=== PATIENT | female | born 1950 | race Caucasian/White ===

== ENCOUNTER 2018-01-22 10:12 | Outpatient (CLI) | payer MEDICARE, MEDICAID ==
--- NOTE | 2018-01-22 11:27 | RAD ---
AP AND LATERAL STANDARD CERVICAL SPINE: HISTORY: M47.12 (cervical spondylosis with myelopathy). COMPARISON: None. FINDINGS: There is moderate degenerative disk space narrowing at C5-C6 and at C6-C7 with anterior and posterior disk osteophyte complexes. No significant listhesis. There is minimal retrolisthesis of C5 on C6 in the extended position. IMPRESSION: 1. Minimal translation of C5/C6, retrograde, with extension. 2. Moderate degenerative changes. POS: [facility]
--- NOTE | 2018-01-22 11:51 | MRI ---
MRI CERVICAL SPINE WITHOUT CONTRAST: INDICATIONS: Spondylosis, including myelopathy and neck pain. COMPARISON: None. TECHNIQUE: Multiplanar, multisequence MR images were obtained of the cervical spine without contrast. Motion ar tifact limits image detail. FINDINGS: There is a 1.1 cm mild complex Tornwaldt cyst seen within the posterior nasopharynx on the sagittal i mages. The visualized posterior fossa appears within normal limits. The craniocervical junction appears within normal limits. C2-C3: There is moderate facet joint interchange and mild broad-based bulge. There is no appreciabl e central canal or neural foraminal narrowing. C3-C4: There is moderate bilateral facet joint degenerative change. There is uncovertebral hypertro phy without appreciable central canal or neural foraminal narrowing. C4-C5: There is uncovertebral hypertrophy and facet joint degenerative change inducing mild bilatera l neural foraminal narrowing. C5-C6: There is a broad-based bulge with facet joint degenerative change and uncovertebral hypertrop hy, greater on the right, inducing mild to moderate right neural foraminal narrowing. Motion artifac t at this level slightly limits detail. C6-C7: There is a broad-based bulge without appreciable central canal or neural foraminal narrowing. C7-T1: There is no appreciable central canal or neural foraminal narrowing. IMPRESSION: 1. Multilevel spondylosis of the cervical spine with neural foraminal narrowing seen at C5-C6. 2. 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 This is a benign cystic abnormality of the nasopharynx. POS: [facility]
== END 2018-01-22 10:13 | disposition home or self-care (01) ==
LOC: TBSIIMAG 10:12
PROVIDERS: ATTEND Neurological Surgery
DX: M47.12 Other spondylosis with myelopathy, cervical region (principal); M99.81 Other biomechanical lesions of cervical region; J39.2 Other diseases of pharynx
CPT/HCPCS: 72040; 72141

== ENCOUNTER 2018-03-03 08:43 | Outpatient (CLI) | payer MEDICARE, MEDICAID | END 2018-03-03 08:44 | disposition home or self-care (01) | LOC: BICMRI 08:43 | PROVIDERS: ATTEND Specialist | DX: M51.16 Intervertebral disc disorders with radiculopathy, lumbar region (principal); M48.061 Spinal stenosis, lumbar region without neurogenic claudication | CPT/HCPCS: 72148 ==

== ENCOUNTER 2018-08-20 08:31 | Outpatient (CLI) | payer MEDICARE, MEDICAID ==
--- NOTE | 2018-08-20 09:52 | CT ---
CT OF THE CHEST WITHOUT CONTRAST: Comparison: 07-02-18 History: Atelectasis versus consolidation in the right middle lobe seen on the prior examination. Pul monary infiltrate. Technique: Multiple contiguous axial images were obtained in a CT of the chest without contrast. Franci nal reformats were performed. FINDINGS: Emphysematous changes are seen in the lungs. There is a stable wedge shaped area of consolidation in the posterior medial aspect of the right middle lobe. This likely represents atelectasis and is uncha nged compared to the prior examination. Stable atelectasis is also seen in the medial aspect of the l ingula. No suspicious pulmonary nodules are seen. No pneumothorax or pleural effusions are seen. The heart is normal in size. No hilar or mediastinal lymphadenopathy are appreciated on this limited noncontrast examination. The patient is status post cholecystectomy. The visualized subdiaphragmatic structures are unremarkab le. The chest wall soft tissues are unremarkable. IMPRESSION: 1. Stable atelectasis and scarring in the right middle lobe and lingula. 2. Emphysema. POS: C
== END 2018-08-20 08:32 | disposition home or self-care (01) ==
LOC: BICCT 08:31
PROVIDERS: ATTEND Internal Medicine
DX: R91.8 Other nonspecific abnormal finding of lung field (principal); J43.9 Emphysema, unspecified; J98.11 Atelectasis; J98.4 Other disorders of lung
CPT/HCPCS: 71250

== ENCOUNTER 2018-08-31 08:36 | Day surgery (SDC) | payer MEDICARE, MEDICAID ==
[2018-08-21 13:06] VITALS: BMI 23.4
[2018-08-31] MEDS ORDERED: Famotidine/PF 20 mg/2ml Vial ONE (12:22)
[2018-08-31] MEDS ORDERED: Fentanyl 100 MCG/2 ML VIAL ONE (12:22)
--- NOTE | 2018-08-31 14:24 | OP ---
DATE OF PROCEDURE: 08/31/2018 SERVICE: Pulmonary Medicine. PROCEDURES PERFORMED: Fiberoptic bronchoscopy with; 1. Visual airway inspection. 2. Endobronchial brush of the right middle lobe. 3. Bronchoalveolar lavage of the right middle lobe. PREPROCEDURE DIAGNOSIS: Atelectasis of the right middle lobe. POSTPROCEDURE DIAGNOSIS: Atelectasis of the right middle lobe. MEDICATIONS USED: For list of medications, please refer to Anesthesia documentation. PREANESTHESIA ASSESSMENT: H and P had been performed. The patient's medications and allergies were reviewed. CONSENT: Informed consent was obtained after discussing risks, benefits, and rationale for performing the procedure as well as alternative options. DESCRIPTION OF PROCEDURE: A time-out was performed identifying the correct procedure and patient with name and date of . A diagnostic fiberoptic bronchoscope was introduced through the 8.0 endotracheal tube. The bronchoscope was advanced into the trachea, where tracheobronchial tree inspection was carried out with clear identification of the right upper lobe, right middle lobe, right lower lobe, left upper lobe, lingula, and left lower lobe. Anatomy was normal to the segmental level. Bronchoalveolar lavage was obtained from the right middle lobe. Endobronchial brushing was obtained from 3 separate segments of the right middle lobe. Hemostasis was verified, and the bronchoscope was subsequently removed from the patient. FINDINGS: 1. Secretions were extremely heavy, tenacious, and clear. 2. No endobronchial disease was identified. 3. Chronic inflammatory changes were diffusely spread throughout the lung, but more severely in the right middle lobe bronchus. 4. Charlette is sharp. SPECIMENS OBTAINED: 1. Pathology on brush and BAL. 2. Microbiology on BAL. COMPLICATIONS: None. ESTIMATED BLOOD LOSS: Less than 2 mL. FLUOROSCOPY TIME: None. DISPOSITION: The patient will be discharged to home when she meets criteria with discharge instructions. She will return to clinic as previously directed. Job ID: [id number]
[2018-08-31 14:30] LABS: Body Fluid Source Bronchial Washings
[2018-08-31 14:31] LABS: BF Color Pink; Clarity Cloudy/Turbid (Clear); RBC Background Count 0.002; Tube # EDTA; WBC/NonHematic-Auto 543 /cumm
[2018-08-31 14:38] LABS: RBC Count-Automated 15000 /cumm
[2018-08-31] MEDS ORDERED: PROPOFOL 200 MG/20 ML VIAL ONE (14:53)
[2018-08-31] MEDS ORDERED: Ondansetron PF 4 MG/2 ML Vial ONE (14:53)
[2018-08-31] MEDS ORDERED: Succinylcholine Chloride 20 MG/ML 10 ml SYRINGE FS ONE (14:53)
[2018-08-31] MEDS ORDERED: Lidocaine 1% PF 5 ML VIAL ONE (14:53)
[2018-08-31] MEDS ORDERED: Rocuronium Bromide 10 MG/ML (10ML VIAL) ONE (14:53)
[2018-08-31] MEDS ORDERED: Metoprolol Tartrate 5 MG/5 ML VIAL ONE (14:53)
== END 2018-08-31 16:09 | disposition home or self-care (01) ==
LOC: SDC 08:36
PROVIDERS: ATTEND Internal Medicine
PROC: 0B9D8ZX Drainage of Right Middle Lung Lobe, Via Natural or Artificial Opening Endoscopic, Diagnostic (ICD-10-PCS; principal; 2018-08-31)
PROC: 0BDD8ZX Extraction of Right Middle Lung Lobe, Via Natural or Artificial Opening Endoscopic, Diagnostic (ICD-10-PCS; 2018-08-31)
DX: J98.11 Atelectasis (principal); J96.12 Chronic respiratory failure with hypercapnia; J96.11 Chronic respiratory failure with hypoxia; J44.9 Chronic obstructive pulmonary disease, unspecified; F17.210 Nicotine dependence, cigarettes, uncomplicated; I10 Essential (primary) hypertension; E78.5 Hyperlipidemia, unspecified; G89.29 Other chronic pain; M54.9 Dorsalgia, unspecified; F32.9 Major depressive disorder, single episode, unspecified; Z79.899 Other long term (current) drug therapy; Z88.1 Allergy status to other antibiotic agents; Z88.2 Allergy status to sulfonamides; Z88.6 Allergy status to analgesic agent; Z88.8 Allergy status to other drugs, medicaments and biological substances
CPT/HCPCS: 85060; 87070; 87102; 87116; 87205; 87206; 88112; 88305; 89051; J2001; J2405; J2704; J3010; S0028

== ENCOUNTER 2018-09-07 08:28 | Outpatient (CLI) | payer MEDICARE, MEDICAID ==
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
== END 2018-09-07 08:29 | disposition home or self-care (01) ==
LOC: MRI 08:28
PROVIDERS: ATTEND Family Medicine
DX: S06.0X9S Concussion with loss of consciousness of unspecified duration, sequela (principal)
CPT/HCPCS: 70551

== ENCOUNTER 2019-02-15 13:53 | Inpatient (IN) | payer MEDICARE, MEDICAID ==
[2019-02-15] MEDS ORDERED: methylPREDNISolone Sod Succ/PF 125 MG/2 ML VIAL ONE (14:52)
[2019-02-15 17:54] VITALS: BMI 19.7
[2019-02-15] MEDS ORDERED: Ondansetron PF 4 MG/2 ML Vial IVP PRN (19:51)
[2019-02-15] MEDS ORDERED: Acetaminophen 650 MG Suppository PR PRN (19:51)
[2019-02-15] MEDS ORDERED: Acetaminophen 325 MG TAB PO PRN (19:51)
[2019-02-15] MEDS ORDERED: Ondansetron ODT 4 MG TAB PO PRN (19:51)
--- NOTE | 2019-02-15 21:14 | HP ---
PRIMARY CARE PHYSICIAN: Dr. Bailon. CODE STATUS: Full code. TIME OF EVALUATION: 8:00 p.m. CHIEF COMPLAINT: Shortness of breath. HISTORY OF PRESENT ILLNESS: This is a 68-year-old female patient with past medical history of COPD, came to the hospital after having severe gradually worsening shortness of breath with no clear triggers and no alleviating factors, associated with cough, has scant sputum production, that was clear. The patient has chronic respiratory failure with hypoxia using oxygen at home. The patient has seen Dr. Bailon earlier today and was suggested to have pneumonia. For the reason, she came to the ER, further she has been admitted to the hospital. REVIEW OF SYSTEMS: All systems reviewed were negative except for the findings mentioned in the HPI. PAST MEDICAL HISTORY: Positive for hyperlipidemia, COPD, hypertension, spondylosis of the lumbar spine, herpes, H. pylori in 2013. PAST SURGICAL HISTORY: Cholecystectomy and colonoscopy with polyp removal in 2009. PSYCHIATRIC HISTORY: Depression. No history of suicidal ideation. SOCIAL HISTORY: The patient smokes cigarettes on a daily basis, half a pack per day. FAMILY HISTORY: Reviewed, noncontributory to current presentation. KNOWN ALLERGIES: Zithromax, naproxen, sulfa, and tramadol. REPORTED MEDICATIONS: 1. Lisinopril. 2. Paxil. 3. Symbicort. 4. Combivent. 5. DuoNeb. 6. Fish oil. 7. [place]. 8. Crestor. PHYSICAL EXAMINATION: VITAL SIGNS: On presentation, blood pressure 132/79 with heart rate 108, respiratory rate was 26, temperature 99.7, pain 3/10, and oxygen saturation was 90% on 2 L oxygen. GENERAL APPEARANCE: The patient is alert and oriented, not in acute distress. HEENT: Eyes, normal conjunctivae. Moist oral mucosa. Anicteric. No JVD. RESPIRATORY: Bilateral air entry is decreased. The patient has bilateral wheezing with no rales. CARDIOVASCULAR: Normal rate, regular rhythm. No murmurs. No gallop. No edema. ABDOMEN: Soft. Normal bowel sounds. MUSCULOSKELETAL: The patient has baseline range of motion and strength. SKIN: Warm and intact. No pallor. No rash. No redness. Capillary refill seems to be intact. NEUROLOGIC: No evidence of any new focal weakness. PSYCHIATRIC: The patient is in good mood. Optimal judgment. IMAGING STUDIES: Chest x-ray was reviewed. The heart size is normal. The aorta is tortuous. The lungs are expanded with suggestion of mild infiltrate in the right lung base. No pneumothoraces or large effusion is seen. LABORATORY DATA: Labs are reviewed. White count 17.9, hemoglobin 14.1, MCV 85.9, platelet count 300. Chemistry; sodium 131, chloride 93, potassium 3.8, anion gap 16. BUN and creatinine were normal. Glucose 123. LFTs were negative. ASSESSMENT AND PLAN: The patient will be placed in the hospital with the following medical problems: 1. Pneumonia, seen on the chest x-ray, specifically on the right lung base. The patient has been started on antibiotics. The patient seems to be septic and is the source. The patient is tachycardic and also have leukocytosis. We will hydrate, we will do cultures and follow sensitivity to adjust antibiotics. 2. Possible chronic obstructive pulmonary disease exacerbation, overlapping underlying pneumonia. The patient has increased shortness of breath, sputum production, cough, pneumonia. The patient will be on nebs, antibiotics, and steroids. 3. Uncontrolled hypertension, systolic blood pressure 145 in admission. We will reconcile home medications, did not treat aggressively since the patient has underlying sepsis and risk for hypertension. 4. Hyperlipidemia. Low-cholesterol diet is advised. Reconcile home medications. 5. Deep venous thrombosis prophylaxis. Job ID: [id number]
[2019-02-16] MEDS: methylPREDNISolone Sod Succ/PF 125 MG/2 ML VIAL IVP SCH ×4 (00:28→20:49)
[2019-02-16 06:33] LABS: #Lymphocytes 0.8 thou/uL (1.20-3.40); #Monocytes 0.4 thou/uL (0.11-0.59); #Neutrophils 8.6 thou/uL (1.40-6.50); %Basophils 0.1 % (0.0-1.0); %Eosinophils 0.3 % (0.0-10.0); %Lymphocytes 8.5 % (21.0-51.0); %Monocytes 3.7 % (0.0-10.0); %Neutrophils 87.5 % (42.0-75.0); Hemoglobin 13.7 g/dL (12.0-16.0); Mean Corpuscular HGB CONC 31.7 g/dL (32.0-36.0); Mean Corpuscular Hemoglobin 28.8 pg (27.0-31.0); Mean Platelet Volume 7.3 fL (7.4-10.4); Platelet Count 284 thou/uL (130-400); RBC Distribution Width 13.9 % (11.5-14.5); Red Blood Cell (RBC) Count 4.74 mill/uL (4.20-5.40); White Blood Cell (WBC) Count 9.9 thou/uL (4.8-10.8)
[2019-02-16 06:56] LABS: Anion Gap 15 mmol/L (10-20); BUN (Urea Nitrogen) 9 mg/dL (9.8-20.1); Calc. Creatinine Clearance 66 mL/min (70-130); Carbon Dioxide 25 mmol/L (23-31); Chloride 103 mmol/L (98-107); Estimated GFR-MDRD Greater than 90; Glucose 169 mg/dL (80-115); Potassium 4.3 mmol/L (3.5-5.1); Sodium 139 mmol/L (136-145)
[2019-02-16] MEDS: Enoxaparin Sodium 40 MG/0.4 ML SYRINGE SC SCH (08:34)
--- NOTE | 2019-02-16 15:34 | PDOC.HOSPP ---
- Subjective Encounter Date: 02/16/19 Encounter Time: 15:30 Subjective: Sitting up receiving breathing treatment. Generally less dyspneic than on admit , cough present, endorses chest wall discomfort with coughing. No nausea or vomiting. - Objective Vital Signs & Weight: Vital Signs (12 hours) Temp Pulse Resp BP Pulse Ox 02/16/19 14:27 94 16 94 L 02/16/19 12:15 99 F 110 H 20 143/84 H 92 L 02/16/19 11:05 98 16 91 L 02/16/19 08:30 91 L 02/16/19 08:28 98.2 F 92 20 130/81 91 L 02/16/19 06:55 88 L 02/16/19 06:53 95 16 88 L Weight Weight 101 lb I&O: 02/15/19 02/16/19 02/17/19 06:59 06:59 06:59 Intake Total 550 Balance 550 Result Diagrams: 02/16/19 05:43 02/16/19 05:43 ROS - Medication Medications: Active Medications Generic Name Dose Route Start Last Admin Trade Name Sundayq PRN Reason Stop Dose Admin Albuterol/Ipratropium 3 ml 02/15/19 22:30 02/16/19 14:27 Duoneb NEB 3 ml [id number] ERENDIRA Administration Enoxaparin Sodium 40 mg 02/16/19 09:00 02/16/19 08:34 Lovenox SC 40 mg 0900 ERENDIRA Administration Levofloxacin 750 mg/ Device 150 mls @ 100 mls/hr 02/16/19 15:00 02/16/19 15: 19 IVPB 150 mls Q24HR ERENDIRA Administration Methylprednisolone Sodium Succinate 40 mg 02/15/19 23:59 02/16/19 12:19 Solu-Medrol IVP 40 mg Q6HR ERENDIRA Administration - Exam General - other findings: Sitting up in bed, receiving breathing treatment Eye: PERRL ENT: moist mucosa Neck: supple, no JVD Heart - other findings: mildly tachycardic Respiratory: rhonchi, wheezes Gastrointestinal: soft, non-tender Extremities: no clubbing, no edema Neurological: no focal deficits Psychiatric: A&O x 3 Hosp A/P (1) CAP (community acquired pneumonia) Code(s): J18.9 - PNEUMONIA, UNSPECIFIED ORGANISM Status: Acute (2) COPD exacerbation Code(s): J44.1 - CHRONIC OBSTRUCTIVE PULMONARY DISEASE W (ACUTE) EXACERBATION Status: Acute (3) Anxiety and depression Code(s): F41.9 - ANXIETY DISORDER, UNSPECIFIED; F32.9 - MAJOR DEPRESSIVE DISORDER, SINGLE EPISODE, UNSPECIFIED Status: Chronic (4) Dyslipidemia Code(s): E78.5 - HYPERLIPIDEMIA, UNSPECIFIED Status: Chronic (5) Hypertension Code(s): I10 - ESSENTIAL (PRIMARY) HYPERTENSION Status: Chronic (6) Tobacco abuse Code(s): Z72.0 - TOBACCO USE Status: Chronic - Plan continue antibiotics, incentive spirometry, out of bed/ambulate, DVT proph w/ lovenox Pulm - antibiotics/steroids/nebs. Add brovana and pulmicort. Reviewed CXR personally, right basilar infiltrate. Reinforce tobacco cessation recommendations. Increase activity as able. Add norco for chest wall pain, tolerates at home. Resume select home meds, see orders.
[2019-02-16] MEDS: Budesonide 0.5 MG/2 ML NEB INH SCH (18:35)
[2019-02-16] MEDS: Arformoterol 15 MCG/2 ML NEB NEB SCH (18:36)
[2019-02-16] MEDS: Gabapentin 300 MG CAP PO SCH (20:49)
[2019-02-16] MEDS: Rosuvastatin 20 MG TAB PO SCH (20:49)
[2019-02-17] MEDS ORDERED: Melatonin 3 MG TAB PO PRN (00:11)
[2019-02-17] MEDS ORDERED: Lisinopril 10 MG TAB PO SCH (00:30)
[2019-02-17] MEDS: methylPREDNISolone Sod Succ/PF 125 MG/2 ML VIAL IVP SCH ×2 (00:30→06:35)
[2019-02-17] MEDS: HYDROcodone/Acetaminophen 5/325 mg Tablet PO PRN ×2 (00:31→21:42)
[2019-02-17] MEDS: Lisinopril 10 MG TAB PO SCH ×2 (00:33→09:51)
[2019-02-17] MEDS: Arformoterol 15 MCG/2 ML NEB NEB SCH ×2 (06:55→19:25)
[2019-02-17] MEDS: Budesonide 0.5 MG/2 ML NEB INH SCH ×2 (06:55→19:25)
[2019-02-17] MEDS: Enoxaparin Sodium 40 MG/0.4 ML SYRINGE SC SCH (09:50)
[2019-02-17] MEDS: PARoxetine 20 MG TAB PO SCH (09:50)
--- NOTE | 2019-02-17 11:48 | PDOC.HOSPP ---
- Subjective Encounter Date: 02/17/19 Encounter Time: 10:30 Subjective: Daughter and grandson present. Patient developed auditory and visual hallucinations last night. These were distressing to her. Reports in the past has had some difficulty with steroids but is unsure of reaction. Breathing overall unchanged from yesterday; has not been out of bed/walking today. Reviewed medications, has tolerated [place] for years without difficulty. - Objective Vital Signs & Weight: Vital Signs (12 hours) Temp Pulse Resp BP BP BP BP 02/17/19 09:51 120/72 02/17/19 07:50 98.3 F 100 20 120/72 02/17/19 06:55 82 20 02/17/19 06:53 82 20 02/17/19 03:51 98.2 F 90 18 115/66 02/17/19 02:09 02/17/19 00:30 177/109 H 02/17/19 00:00 90 177/109 H Pulse Ox 02/17/19 09:51 02/17/19 07:50 90 L 02/17/19 06:55 94 L 02/17/19 06:53 94 L 02/17/19 03:51 97 02/17/19 02:09 96 02/17/19 00:30 02/17/19 00:00 Weight Weight 101 lb I&O: 02/16/19 02/17/19 02/18/19 06:59 06:59 06:59 Intake Total 1100 Balance 1100 Result Diagrams: 02/16/19 05:43 02/16/19 05:43 ROS - Medication Medications: Active Medications Generic Name Dose Route Start Last Admin Trade Name Freq PRN Reason Stop Dose Admin Hydrocodone Bitart/Acetaminophen 1 tab 02/16/19 15:40 02/17/19 00:31 [place] 5/325 PO 1 tab Q4H PRN Administration Pain 4-10 Albuterol/Ipratropium 3 ml 02/16/19 18:30 02/17/19 06:53 Duoneb NEB 3 ml TID-RT ERENDIRA Administration Arformoterol Tartrate 15 mcg 02/16/19 18:30 02/17/19 06:55 Brovana NEB 15 mcg BID-RT ERENDIRA Administration Budesonide 0.5 mg 02/16/19 18:30 02/17/19 06:55 Pulmicort Neb Solution INH 0.5 mg BID-RT ERENDIRA Administration Enoxaparin Sodium 40 mg 02/16/19 09:00 02/17/19 09:50 Lovenox SC 40 mg 0900 ERENDIRA Administration Gabapentin 300 mg 02/16/19 21:00 02/16/19 20:49 Neurontin PO 300 mg QPM ERENDIRA Administration Levofloxacin 750 mg/ Device 150 mls @ 100 mls/hr 02/16/19 15:00 02/16/19 15: 19 IVPB 150 mls Q24HR ERENDIRA Administration Lisinopril 10 mg 02/17/19 09:00 02/17/19 09:51 Zestril PO 10 mg DAILY ERENDIRA Administration Melatonin 3 mg 02/17/19 00:11 02/17/19 00:30 Melatonin PO 3 mg HSPRN PRN Administration Insomnia Paroxetine HCl 40 mg 02/17/19 09:00 02/17/19 09:50 Paxil PO 40 mg DAILY ERENDIRA Administration Rosuvastatin Calcium 20 mg 02/16/19 21:00 02/16/19 20:49 Crestor PO 20 mg HS ERENDIRA Administration - Exam General - other findings: Agitated. Presently oriented x 3, recalls difficult night Eye: anicteric sclera ENT: moist mucosa ENT - other findings: No thrush Neck: supple, no lymphadenopathy Heart - other findings: Tachycardic/regular Respiratory: no rales, wheezes Gastrointestinal: soft, non-tender, non-distended Extremities: no edema Skin: no rashes Neurological: no new deficit Psychiatric - other findings: Presently oriented; auditory and visual hallucinations overnight present Hosp A/P (1) CAP (community acquired pneumonia) Code(s): J18.9 - PNEUMONIA, UNSPECIFIED ORGANISM Status: Acute (2) COPD exacerbation Code(s): J44.1 - CHRONIC OBSTRUCTIVE PULMONARY DISEASE W (ACUTE) EXACERBATION Status: Acute (3) Anxiety and depression Code(s): F41.9 - ANXIETY DISORDER, UNSPECIFIED; F32.9 - MAJOR DEPRESSIVE DISORDER, SINGLE EPISODE, UNSPECIFIED Status: Chronic (4) Dyslipidemia Code(s): E78.5 - HYPERLIPIDEMIA, UNSPECIFIED Status: Chronic (5) Hypertension Code(s): I10 - ESSENTIAL (PRIMARY) HYPERTENSION Status: Chronic (6) Tobacco abuse Code(s): Z72.0 - TOBACCO USE Status: Chronic (7) Encephalopathy acute Code(s): G93.40 - ENCEPHALOPATHY, UNSPECIFIED Status: Acute - Plan plan discussed w/ family, continue antibiotics, respiratory therapy, incentive spirometry, out of bed/ambulate, DVT proph w/lovenox, dc tele, dc IVF 1. Pulm - Discontinue systemic steroids - concerned about steroid related side effect of delerium. Continue antibiotics/nebs/brovana/pulmicort. Continue tobacco cessation recommendations. Increase activity as able. Add norco for chest wall pain, tolerates at home. 2. Metabolic encephalopathy/delerium - discussed with patient and family in detail. Stop steroids. Discontinue tele, minimize tubes/lines. Trial qhs seroquel prn if recurs this evening. Encouraged family members to spend the night to help re-orient.
[2019-02-17] MEDS: Gabapentin 300 MG CAP PO SCH (21:42)
[2019-02-17] MEDS: Rosuvastatin 20 MG TAB PO SCH (21:42)
[2019-02-18] MEDS: Budesonide 0.5 MG/2 ML NEB INH SCH ×2 (06:09→18:33)
[2019-02-18] MEDS: Arformoterol 15 MCG/2 ML NEB NEB SCH ×2 (06:28→18:53)
[2019-02-18] MEDS: Enoxaparin Sodium 40 MG/0.4 ML SYRINGE SC SCH (08:50)
[2019-02-18] MEDS: PARoxetine 20 MG TAB PO SCH (08:51)
[2019-02-18] MEDS: HYDROcodone/Acetaminophen 5/325 mg Tablet PO PRN ×2 (08:51→15:08)
[2019-02-18] MEDS: Lisinopril 10 MG TAB PO SCH (08:51)
--- NOTE | 2019-02-18 14:23 | PQF ---
DATE: 02-18-19 ATTN: DR. ALMITA BONILLA Please exercise your independent, professional judgment in responding to the clarification form. Clinical indicators are provided on the bottom of this form for your review Please check appropriate box(s) to clarify if the following diagnosis has been ruled in or ruled out: SEPSIS [x ] Ruled in diagnosis [ ] Continue to treat [ x ] Resolved [ ] Ruled out diagnosis [ ] Other diagnosis [ ] Unable to determine In addition, please specify: Present on Admission (POA): [ ] Yes [ ] No [ ] Unable to determine For continuity of documentation, please document condition throughout progress notes and discharge summary. Thank You. CLINICAL INDICATORS - SIGNS / SYMPTOMS / LABS: ER DX: PNEUMONIA, COPD, SEPSIS H&P: PNEUMONIA. THE PATIENT SEEMS TO BE SEPTIC AND IS THE SOURCE. THE PATIENT IS TACHYCARDIC AND ALSO HAVE LEUKOCYTOSIS. ER: PULSE: 108, 111, 109, 109 ER: TEMP: 99.7, 99.1, 99.0 ER: RR: 26, 25, 26, 25 RISK FACTORS: H&P: SOB, HX COPD, HX CHRONIC RESPIRATORY FAILURE, SMOKER, HX HTN, SPONDYLOSIS OF THE LUMBAR SPINE, HERPES, H. PYLORI, ADMITTED WITH PNEUMONIA, METABOLIC ENCEPHALOPATHY TREATMENTS: H&P: THE PATIENT HAS BEEN STARTED ON ANTIBIOTICS. WE WILL HYDRATE, WE WILL DO CULTURES AND FOLLOW SENSITIVITY TO ADJUST ANTIBIOTICS. (This form is maintained as a part of the permanent medical record) 2014 [employer], [place]. All Rights Reserved CHRISTIAN [email or web address] Office: [phone] [facility] CENTERMarielena
--- NOTE | 2019-02-18 18:54 | PDOC.HOSPP ---
- Subjective Encounter Date: 02/18/19 Encounter Time: 11:40 Subjective: Generally feeling better. No further hallucinations (auditory/visual) after cessation of steroids. Slept "some". No nausea or vomiting. Daughter present at bedside. - Objective Vital Signs & Weight: Vital Signs (12 hours) Temp Pulse Resp BP Pulse Ox 02/18/19 18:33 82 16 96 02/18/19 16:00 97.7 F 91 18 119/69 92 L 02/18/19 12:30 80 16 02/18/19 12:00 97 02/18/19 11:35 97.7 F 82 18 152/98 H 97 02/18/19 08:46 98.1 F 81 16 166/92 H 97 02/18/19 08:00 97 Weight Weight 106 lb 8 oz I&O: 02/17/19 02/18/19 02/19/19 06:59 06:59 06:59 Intake Total 1100 Balance 1100 Result Diagrams: 02/16/19 05:43 02/16/19 05:43 ROS - Medication Medications: Active Medications Generic Name Dose Route Start Last Admin Trade Name Freq PRN Reason Stop Dose Admin Hydrocodone Bitart/Acetaminophen 1 tab 02/16/19 15:40 02/18/19 15:08 [place] 5/325 PO 1 tab Q4H PRN Administration Pain 4-10 Albuterol/Ipratropium 3 ml 02/16/19 18:30 02/18/19 12:30 Duoneb NEB 3 ml TID-RT ERENDIRA Administration Arformoterol Tartrate 15 mcg 02/16/19 18:30 02/18/19 06:28 Brovana NEB 15 mcg BID-RT ERENDIRA Administration Budesonide 0.5 mg 02/16/19 18:30 02/18/19 18:33 Pulmicort Neb Solution INH 0.5 mg BID-RT ERENDIRA Administration Enoxaparin Sodium 40 mg 02/16/19 09:00 02/18/19 08:50 Lovenox SC 40 mg 0900 ERENDIRA Administration Gabapentin 300 mg 02/16/19 21:00 02/17/19 21:42 Neurontin PO 300 mg QPM ERENDIRA Administration Levofloxacin 750 mg/ Device 150 mls @ 100 mls/hr 02/16/19 15:00 02/18/19 15: 03 IVPB 150 mls Q24HR ERENDIRA Administration Lisinopril 10 mg 02/17/19 09:00 02/18/19 08:51 Zestril PO 10 mg DAILY ERENDIRA Administration Melatonin 3 mg 02/17/19 00:11 02/17/19 00:30 Melatonin PO 3 mg HSPRN PRN Administration Insomnia Paroxetine HCl 40 mg 02/17/19 09:00 02/18/19 08:51 Paxil PO 40 mg DAILY ERENDIRA Administration Rosuvastatin Calcium 20 mg 02/16/19 21:00 02/17/19 21:42 Crestor PO 20 mg HS ERENDIRA Administration - Exam awake alert Eye: PERRL ENT: moist mucosa Neck: supple, no JVD Heart: RRR Respiratory - other findings: Distant, occasional wheezes, fair aeration Gastrointestinal: soft, non-tender, non-distended Extremities: no edema Neurological: no focal deficits Psychiatric: A&O x 3 Hosp A/P (1) CAP (community acquired pneumonia) Code(s): J18.9 - PNEUMONIA, UNSPECIFIED ORGANISM Status: Acute (2) COPD exacerbation Code(s): J44.1 - CHRONIC OBSTRUCTIVE PULMONARY DISEASE W (ACUTE) EXACERBATION Status: Acute (3) Anxiety and depression Code(s): F41.9 - ANXIETY DISORDER, UNSPECIFIED; F32.9 - MAJOR DEPRESSIVE DISORDER, SINGLE EPISODE, UNSPECIFIED Status: Chronic (4) Dyslipidemia Code(s): E78.5 - HYPERLIPIDEMIA, UNSPECIFIED Status: Chronic (5) Hypertension Code(s): I10 - ESSENTIAL (PRIMARY) HYPERTENSION Status: Chronic (6) Tobacco abuse Code(s): Z72.0 - TOBACCO USE Status: Chronic - Plan continue antibiotics plan discussed w/ family, continue antibiotics, respiratory therapy, incentive spirometry, out of bed/ambulate, DVT proph w/lovenox 1. Pulm - Discontinued systemic steroids 02/17; interval improvement in encephalopathy. Continue antibiotics/nebs/brovana/pulmicort. Continue tobacco cessation recommendations. Increase activity as able. Continue norco for chest wall pain, tolerates at home. 2. Metabolic encephalopathy/delerium - discussed with patient and family in detail. Trial qhs seroquel prn if recurs this evening. Encouraged family members to spend the night to help re-orient. Increase activity; perhaps home 02/19
[2019-02-18] MEDS: Gabapentin 300 MG CAP PO SCH (20:30)
[2019-02-18] MEDS: Rosuvastatin 20 MG TAB PO SCH (20:30)
[2019-02-19] MEDS: Budesonide 0.5 MG/2 ML NEB INH SCH (06:36)
[2019-02-19] MEDS: Arformoterol 15 MCG/2 ML NEB NEB SCH (06:36)
[2019-02-19] MEDS: PARoxetine 20 MG TAB PO SCH (08:28)
[2019-02-19] MEDS: Lisinopril 10 MG TAB PO SCH (08:28)
[2019-02-19] MEDS: Enoxaparin Sodium 40 MG/0.4 ML SYRINGE SC SCH (08:29)
[2019-02-19] MEDS: HYDROcodone/Acetaminophen 5/325 mg Tablet PO PRN (08:34)
[2019-02-19 15:02] VITALS: BP 139/82; TEMP 98.3
--- NOTE | 2019-02-20 05:52 | DIS ---
DATE OF ADMISSION: 02/15/2019 DATE OF DISCHARGE: 02/19/2019 PRIMARY CARE PHYSICIAN: Terrell Bailon MD. CHIEF COMPLAINT/REASON FOR ADMISSION: Shortness of breath. PRINCIPAL DIAGNOSIS ON ADMISSION: Community-acquired pneumonia, right lung base. DISCHARGE DIAGNOSES: 1. Sepsis secondary to pulmonary source with evidence of heart rate greater than 90, respiratory rate greater than 20 at the time of hospitalization, as well as chest x-ray changes compatible with community-acquired pneumonia. 2. Chronic obstructive pulmonary disease, on home oxygen, with decompensation. 3. Anxiety/depression. 4. Dyslipidemia. 5. Essential hypertension. 6. Tobacco dependence, ongoing. 7. Toxic metabolic encephalopathy secondary to steroids, improved. HOSPITAL COURSE: Ms. Juarez is a delightful 68-year-old female, admitted to [facility] with complaints of worsening dyspnea as well as cough with scant sputum production. She was seen by Dr. Bailon early in the day, chest x-ray concerning for interval development of infiltrate, chest x-ray done in the [place], showing mild infiltrate in right lung base. She proceeded to the emergency department, clinical criteria of sepsis present with respiratory rate greater than 20, heart rate greater than 90. White blood cell count notably normal. The patient was admitted to the hospital for additional evaluation and care. Initially treated presumptively with steroids and antibiotics. However, developed auditory and visual hallucinations while on steroids. These cleared with cessation of steroids. With antibiotic coverage/ongoing oxygen supplementation/nebulizers/routine treatment, showed interval improvement with improved exercise tolerability. The patient seen and evaluated on rounds 02/19/2019, notes her breathing is at baseline. Tolerating a diet. No nausea/vomiting. She appears stable to transition to home. Exam notable for improved aeration bilaterally, though baseline distant breath sounds are present. Encouraged tobacco cessation, ongoing. She has excellent family support. Spoke with the daughter who is present at the bedside as well today. DISCHARGE DISPOSITION: Home. MEDICATIONS: 1. Gabapentin 300 mg p.o. q.p.m. 2. [place] 5/325 one p.o. t.i.d. p.r.n. pain. 3. DuoNeb 4 times daily as needed for shortness of breath. 4. Levaquin 750 mg p.o. daily for 4 additional days, prescription provided. 5. Lisinopril 10 mg p.o. once daily. 6. Paroxetine 40 mg p.o. once daily. 7. Rosuvastatin 20 mg p.o. at bedtime. 8. Symbicort, resume home dose, 2 puffs inhaled twice daily. 9. Valacyclovir 500 mg p.o. once daily. DIET: Regular. ACTIVITY: As tolerated. FOLLOWUP: Follow up with Dr. Bailon via routine post hospital followup in 2-4 weeks or sooner, if needed. CONDITION ON DISCHARGE: Improved. TIME SPENT: Total time spent on care/discharge is 40 minutes. Job ID: [id number]
== END 2019-02-19 15:30 | disposition home or self-care (01) | DRG 871 ==
LOC: ERS 13:53 → 2NO 17:46 → T4-A 02-18 11:46
PROVIDERS: ADMIT Internal Medicine; ATTEND Internal Medicine
DX: A41.9 Sepsis, unspecified organism (principal); G92 Toxic encephalopathy; J18.1 Lobar pneumonia, unspecified organism; J44.0 Chronic obstructive pulmonary disease with (acute) lower respiratory infection; J44.1 Chronic obstructive pulmonary disease with (acute) exacerbation; T38.0X5A Adverse effect of glucocorticoids and synthetic analogues, initial encounter; F17.200 Nicotine dependence, unspecified, uncomplicated; E78.5 Hyperlipidemia, unspecified; F41.9 Anxiety disorder, unspecified; F32.9 Major depressive disorder, single episode, unspecified; Z79.899 Other long term (current) drug therapy; Z79.51 Long term (current) use of inhaled steroids; Z99.81 Dependence on supplemental oxygen
CPT/HCPCS: 36415; 80048; 85025; 94640; 94760; 96361; 96365; 96375; J1650; J1956; J2930; J7620; J7626

== ENCOUNTER 2019-03-03 10:13 | Outpatient (CLI) | payer MEDICARE, MEDICAID ==
--- NOTE | 2019-03-17 16:54 | MMO ---
Bilateral MAMMO Bilat Screen [facility]. CLINICAL HISTORY: Patient is 68 years old and is seen for screening. The patient has no family history of breast cancer. The patient has no personal history of cancer. VIEWS: The views performed were: bilateral craniocaudal with tomosynthesis and bilateral mediolateral oblique with tomosynthesis. FILMS COMPARED: The present examination has been compared to prior imaging studies performed at [facility] on 06/07/2014, 08/01/2015 and 08/13/2016. This study has been interpreted with the assistance of computer-aided detection. MAMMOGRAM FINDINGS: The breasts are heterogeneously dense, which could obscure a lesion on mammography. There are no suspicious masses, suspicious calcifications, or new areas of architectural distortion. IMPRESSION: THERE IS NO MAMMOGRAPHIC EVIDENCE OF MALIGNANCY. A ROUTINE FOLLOW-UP MAMMOGRAM IN 1 YEAR IS RECOMMENDED. THE RESULTS OF THIS EXAM WERE SENT TO THE PATIENT. ACR BI-RADS Category 1 - Negative MAMMOGRAPHY NOTE: 1. A negative mammogram report should not delay a biopsy if a dominant of clinically suspicious mass is present. 2. Approximately 10% to 15% of breast cancers are not detected by mammography. 3. Adenosis and dense breasts may obscure an underlying neoplasm. Reported by: CELSO PARDO MD Electonically Signed: [id number]
== END 2019-03-03 10:14 | disposition home or self-care (01) ==
LOC: BICMAMMO 10:13
PROVIDERS: ATTEND Family Medicine
DX: Z12.31 Encounter for screening mammogram for malignant neoplasm of breast (principal)
CPT/HCPCS: 77063; 77067